=== PATIENT | male | born 1955 | race Caucasian/White ===

== ENCOUNTER 2019-07-29 07:23 | Day surgery (SDC) | payer OTHER ==
[~2019-07-29] VITALS: Ht 172.7 cm; Wt 77.2 kg
[2019-07-29] VITALS (9 sets, daily range): BP systolic 124–155; BP diastolic 69–84; PULSE 58–80; RESP 14–21; Ht 172.7 cm; Wt 77.2 kg
[~2019-07-29 07:23] MED LIST: AMLO-147 PO; AMOX1TAB10 PO; ASPI-817 PO; ATOR-2 PO; CLOP75TA27 PO; LISI40TA3 PO; METO-319 PO
[2019-07-29] MEDS ORDERED: HEPARIN 1000 UNITS/NS (A-LINE) 1,000 ML ONE (08:20)
[2019-07-29] MEDS ORDERED: IODIXANOL LOCM 100 ML BTL ONE ×2 (08:20→10:47)
[2019-07-29] MEDS ORDERED: LIDOCAINE 1% (MDV) 20 ML INJ ONE (08:20)
[2019-07-29] MEDS ORDERED: SOD CHLORIDE 0.45% 1,000 ML IV SCH (08:30)
[2019-07-29] MEDS ORDERED: DIAZEPAM 5 MG TAB PO ONE (08:30)
[2019-07-29] MEDS ORDERED: FAMOTIDINE 20 MG TAB PO ONE (08:30)
[2019-07-29] MEDS ORDERED: DIPHENHYDRAMINE 50 MG CAP PO ONE (08:30)
[2019-07-29] MEDS ORDERED: MIDAZOLAM 1 MG/ML 2 ML INJ ONE (09:06)
[2019-07-29] MEDS ORDERED: FENTAnyl 50 MCG/ML VIAL ONE (09:06)
[2019-07-29] MEDS ORDERED: NITROGLYCERIN (IC) 100 MCG/ML INJ ONE (10:47)
[2019-07-29] MEDS ORDERED: SOD CHLORIDE 0.9% 1,000 ML IV SCH (10:55)
[2019-07-29] MEDS ORDERED: ONDANSETRON 4 MG INJ IV PRN (11:00)
[2019-07-29] MEDS ORDERED: AL HYDROX/MG HYDROX/SIMETH 30 ML CUP PO PRN (11:00)
[2019-07-29] MEDS ORDERED: morphine 2 MG INJ IV PRN (11:00)
[2019-07-29] MEDS ORDERED: ACETAMINOPHEN 325 MG TAB PO PRN (11:00)
== END 2019-07-29 16:40 | disposition home or self-care (01) ==
LOC: SDS 07:23
PROVIDERS: ATTEND Internal Medicine
DX: I25.10 Atherosclerotic heart disease of native coronary artery without angina pectoris (principal)
CPT/HCPCS: 71045; 80048; 80061; 85025; 85610; 85730; 93005; 93459; 93880; C1760; C1887; C1894; J1644; J2250; J3010; Q9967; Z7610